=== PATIENT | female | born 1985 | race Caucasian/White ===

== ENCOUNTER 2020-09-17 15:56 | Emergency (ER) | payer OTHER ==
[~2020-09-17] VITALS: Ht 160 cm; Wt 68.5 kg
[2020-09-17] MEDS ORDERED: SYNTHROID112 MCG (16:09)
[2020-09-17] MEDS ORDERED: FOLIC ACID20 MG (16:10)
[2020-09-17] MEDS ORDERED: VITAMIN D-40010 MCG (16:10)
[2020-09-17] MEDS ORDERED: PROGESTERONE100 M1 (16:10)
== END 2020-09-17 20:09 | disposition home or self-care (01) ==
LOC: ER 15:56
DX: O20.8 Other hemorrhage in early pregnancy (principal); Z3A.01 Less than 8 weeks gestation of pregnancy

== ENCOUNTER → 2020-10-30 | Outpatient (CLI) | payer OTHER ==
[~2020-10-30] MED LIST: FOLIC ACID20 MG; PROGESTERONE100 M1; SYNTHROID112 MCG; VITAMIN D-40010 MCG
== END | disposition home or self-care (01) ==
LOC: PRENATAL 15:55
PROVIDERS: ATTEND Obstetrics & Gynecology Maternal & Fetal Medicine
DX: Z36.89 Encounter for other specified antenatal screening (principal); O36.80X1 Pregnancy with inconclusive fetal viability, fetus 1; O09.521 Supervision of elderly multigravida, first trimester; Z3A.13 13 weeks gestation of pregnancy

== ENCOUNTER → 2020-12-19 | Outpatient (CLI) | payer OTHER | END | disposition home or self-care (01) | LOC: PRENATAL 12-11 13:30 | PROVIDERS: ATTEND Obstetrics & Gynecology Maternal & Fetal Medicine | DX: O35.0XX1 Maternal care for (suspected) central nervous system malformation in fetus, fetus 1 (principal); O35.3XX1 Maternal care for (suspected) damage to fetus from viral disease in mother, fetus 1; O98.512 Other viral diseases complicating pregnancy, second trimester; O28.1 Abnormal biochemical finding on antenatal screening of mother; O99.891 Other specified diseases and conditions complicating pregnancy; Z36.89 Encounter for other specified antenatal screening; Z3A.19 19 weeks gestation of pregnancy ==

== ENCOUNTER 2021-01-25 18:29 | Inpatient (IN) | payer OTHER ==
[~2021-01-25] VITALS: Ht 160 cm; Wt 74.8 kg
[2021-01-25] MEDS ORDERED: ATABEX DHA 200200 MG PO (21:37)
[2021-01-25] MEDS ORDERED: SYNTHROID125 MCG PO (21:38)
== END 2021-01-29 15:00 | disposition designated cancer center or children's hospital (05) | DRG 833 ==
LOC: OBS/DEL 18:29 → OB/GYN 01-26 12:04 → LDR 01-26 12:04 → OB/GYN 01-26 17:32
PROVIDERS: ADMIT Obstetrics & Gynecology; ATTEND Obstetrics & Gynecology
PROC: 4A1HXFZ Monitoring of Products of Conception, Cardiac Rhythm, External Approach (ICD-10-PCS; principal; 2021-01-26)
PROC: BY4CZZZ Ultrasonography of Second Trimester, Single Fetus (ICD-10-PCS; 2021-01-26)
DX: O26.872 Cervical shortening, second trimester (principal); O36.5920 Maternal care for other known or suspected poor fetal growth, second trimester, not applicable or unspecified; Z3A.25 25 weeks gestation of pregnancy

== ENCOUNTER 2021-03-15 16:30 | Inpatient (IN) | payer OTHER ==
[~2021-03-15] VITALS: Ht 157.5 cm; Wt 1.4 kg
[~2021-03-15 16:30] MED LIST changes: +ATABEX DHA 200200 MG PO; +SYNTHROID125 MCG PO
[2021-03-15] MEDS ORDERED: CHILDREN'S ASPI81 MG PO (17:47)
[2021-03-15] MEDS ORDERED: PRENATAL TABLE1 EAC1 PO (17:49)
[2021-03-30] MEDS ORDERED: FAMOTIDINE20 MG PO (11:41)
[2021-03-30] MEDS ORDERED: SIMETHICONE125 M1 PO (11:41)
[2021-03-30] MEDS ORDERED: IBUPROFEN800 MG PO (11:41)
[2021-03-30] MEDS ORDERED: TUSSIN MUC100 MG/5 M PO (11:41)
[2021-03-30] MEDS ORDERED: OXYC1TAB9 PO (11:41)
[2021-03-30] MEDS ORDERED: PREPLUS CA-FE1 EACH PO (11:42)
[2021-03-30] MEDS ORDERED: LEVOTHYROXINE125 MCG PO (11:42)
== END 2021-03-30 14:21 | disposition home or self-care (01) | DRG 786 ==
LOC: OB/GYN 16:30 → LDR 16:30 → OB/GYN 03-16 14:50 → LDR 03-19 14:20 → OB/GYN 03-26 20:28
PROVIDERS: ADMIT Obstetrics & Gynecology; ATTEND Obstetrics & Gynecology
PROC: 10D00Z1 Extraction of Products of Conception, Low, Open Approach (ICD-10-PCS; principal; 2021-03-15)
PROC: 4A1HXFZ Monitoring of Products of Conception, Cardiac Rhythm, External Approach (ICD-10-PCS; 2021-03-15)
PROC: BY4FZZZ Ultrasonography of Third Trimester, Single Fetus (ICD-10-PCS; 2021-03-15)
DX: O76 Abnormality in fetal heart rate and rhythm complicating labor and delivery (principal); O60.14X0 Preterm labor third trimester with preterm delivery third trimester, not applicable or unspecified; O26.873 Cervical shortening, third trimester; Z3A.32 32 weeks gestation of pregnancy; Z37.0 Single live birth

== ENCOUNTER 2021-04-02 14:49 | Outpatient (CLI) | payer OTHER ==
[~2021-04-02 14:49] MED LIST changes: +CHILDREN'S ASPI81 MG PO; +FAMOTIDINE20 MG PO; +IBUPROFEN800 MG PO; +LEVOTHYROXINE125 MCG PO; +OXYC1TAB9 PO; +PRENATAL TABLE1 EAC1 PO; +PREPLUS CA-FE1 EACH PO; +SIMETHICONE125 M1 PO; +TUSSIN MUC100 MG/5 M PO
== END 2021-04-03 08:54 | disposition home or self-care (01) ==
LOC: LAB 14:49
DX: Z03.818 Encounter for observation for suspected exposure to other biological agents ruled out (principal)